=== PATIENT | female | born 1995 | race Two or more races ===

== ENCOUNTER 2018-11-25 14:10 | Day surgery (SDC) | payer OTHER ==
[~2018-11-25 14:10] MED LIST: CEFAZOLIN 1 GM INJ; LIDOCAINE 2% (SDV) 5 ML INJ; SEVOFLURANE 15 MIN
[2018-11-25 15:49] LABS: ADD MAN DIFF? NO
[2018-11-25 15:51] LABS: BASOPHILS % 0.5 % (0.0-2.0); EOSINOPHILS # 0.1 10^3/ul (0.0-0.5); EOSINOPHILS % 0.7 % (0.0-7.0); HEMATOCRIT 37.7 % (37.0-47.0); LYMPHOCYTES # 2.1 10^3/ul (0.8-2.9); LYMPHOCYTES % 28.2 % (15.0-51.0); MEAN CORPUSCULAR HEMOGLOBIN 29.5 pg (29.0-33.0); MEAN CORPUSCULAR HGB CONC 31.8 g/dl (32.0-37.0); MEAN CORPUSCULAR VOLUME 92.6 fl (82.0-101.0); MEAN PLATELET VOLUME 10.3 fl (7.4-10.4); MONOCYTE # 0.7 10^3/ul (0.3-0.9); NEUTROPHIL # 4.5 10^3/ul (1.6-7.5); NEUTROPHILS % 60.3 % (39.0-77.0); PLATELET COUNT 231 10^3/UL (140-415); RED BLOOD COUNT 4.07 10^6/ul (4.20-5.40); RED CELL DISTRIBUTION WIDTH 13.5 % (11.5-14.5)
[2018-11-25 15:51] LABS: WHITE BLOOD COUNT 7.4 10^3/ul (4.8-10.8)
[2018-11-25 16:10] LABS: INR 0.99; PROTIME 13.2 Sec (11.9-14.9)
[2018-11-25 16:11] LABS: PARTIAL THROMBOPLASTIN TIME 33.1 Sec (23.0-35.0)
[2018-11-25 16:13] LABS: ANION GAP 7 (5-13); BLOOD UREA NITROGEN 13 mg/dl (7-20); CALCIUM 8.8 mg/dl (8.4-10.2); CARBON DIOXIDE 24 mmol/L (21-31); CHLORIDE 109 mmol/L (97-110); Estimated GFR > 60 mL/min (>60); GLUCOSE 97 mg/dl (70-220); SODIUM 140 mmol/L (135-144)
[2018-11-25] MEDS ORDERED: PROPOFOL 40 ML (17:45)
[2018-11-25] MEDS ORDERED: DEXAMETHASONE 4 MG/ML 5 ML INJ (17:46)
[2018-11-25] MEDS ORDERED: ONDANSETRON 4 MG INJ ×2 (17:46→19:00)
[2018-11-25] MEDS ORDERED: KETOROLAC 30 MG INJ (18:28)
[2018-11-25] MEDS ORDERED: HYDROmorphONE 1 MG/5 ML IV SYRINGE IV ×2 (18:56→19:00)
[2018-11-25] MEDS ORDERED: MIDAZOLAM 1 MG/ML 2 ML INJ (18:56)
[2018-11-25] MEDS ORDERED: MEPERIDINE 25 MG INJ (18:59)
[2018-11-25] MEDS ORDERED: METOCLOPRAMIDE 10 MG INJ IV (19:00)
[2018-11-25] MEDS ORDERED: ALBUTEROL 0.083% (NEB) 2.5 MG/3 ML AMP HHN (19:00)
[2018-11-25] MEDS ORDERED: DIPHENHYDRAMINE 50 MG INJ IV (19:00)
[2018-11-25] MEDS ORDERED: LABETALOL HCL 20MG INJ IV (19:00)
[2018-11-25] MEDS ORDERED: OXYCODONE/ACETAMINOPHEN (5/325) TAB PO ×2 (19:00)
[2018-11-25] MEDS ORDERED: EPHEDrine SULFATE 50 MG/5 ML SYG IV (19:00)
[2018-11-25] MEDS ORDERED: hydrALAzine 20 MG INJ IV (19:00)
[2018-11-25] MEDS ORDERED: FENTAnyl 50 MCG/ML VIAL IV ×3 (19:00)
[2018-11-25] MEDS: ONDANSETRON 4 MG INJ IV (19:03)
[2018-11-25] MEDS: MEPERIDINE 25 MG INJ IV (19:03)
[2018-11-25] MEDS: HYDROmorphONE 1 MG/5 ML IV SYRINGE IV ×2 (19:03→19:11)
[2018-11-25] MEDS: MIDAZOLAM 1 MG/ML 2 ML INJ IV (19:04)
[2018-11-25] MEDS: KETOROLAC 30 MG INJ IV (19:57)
== END 2018-11-25 20:50 | disposition home or self-care (01) ==
LOC: SDS 14:10
DX: S64.490D Injury of digital nerve of right index finger, subsequent encounter (principal); W26.0XXD Contact with knife, subsequent encounter; J45.909 Unspecified asthma, uncomplicated; G57.61 Lesion of plantar nerve, right lower limb
CPT/HCPCS: 64912; 71045; 80048; 84703; 85025; 85610; 85730; 93005